=== PATIENT | male | born 1945 | race Caucasian/White ===

== ENCOUNTER 2021-03-29 14:37 | Emergency (ER) | payer MEDICARE ==
[~2021-03-29] VITALS: Ht 175.3 cm; Wt 94.5 kg
[2021-03-29] MEDS ORDERED: LANTUS100 UNITS/ SUB-Q (14:56)
[2021-03-29] MEDS ORDERED: CYMBALTA20 MG PO (14:56)
[2021-03-29] MEDS ORDERED: FLOMAX0.4 MG PO (14:56)
[2021-03-29] MEDS ORDERED: MORPHINE SULFAT15 M1 PO (14:57)
[2021-03-29] MEDS ORDERED: LOSARTAN POTASS50 MG PO (14:58)
[2021-03-29] MEDS ORDERED: KAPSPARGO SPRI100 MG PO (14:58)
[2021-03-29] MEDS ORDERED: CEPHALEXIN500 M1 PO (15:18)
== END 2021-03-29 15:40 | disposition home or self-care (01) ==
LOC: ED 14:37
DX: M70.42 Prepatellar bursitis, left knee (principal); E11.9 Type 2 diabetes mellitus without complications; I10 Essential (primary) hypertension; I48.91 Unspecified atrial fibrillation; Z79.4 Long term (current) use of insulin; Z86.73 Personal history of transient ischemic attack (TIA), and cerebral infarction without residual deficits; Z88.2 Allergy status to sulfonamides; Z79.899 Other long term (current) drug therapy
CPT/HCPCS: 99283